=== PATIENT | female | born 1995 | race African-American/Black ===

== ENCOUNTER 2023-01-07 09:05 | Emergency (ER) | payer OTHER, SELFPAY ==
--- NOTE | ~2023-01-07 | XR_ITS ---
XR knee LT min 4V DATE: 01/07/2023 10:03 INDICATION: Pain and anterior swelling. No injury. TECHNIQUE: 4 views COMPARISON: None FINDINGS: There is prominent distention of the suprapatellar bursa consistent with joint effusion. No fracture or dislocation, periosteal reaction or bone destruction, radiopaque intra-articular loose body or chondrocalcinosis. Joint spaces are well preserved. IMPRESSION: Prominent knee joint effusion Reviewed, dictated and finalized at location A. CUTTER
[2023-01-07 09:07] VITALS: BP 144/84; PULSE 77; RESP 16; TEMP 36.4; O2SAT 100
--- NOTE | 2023-01-07 11:27 | ED.LOWEXIN ---
HPI - Extremity Injury (Lower) General Chief Complaint: Extremity Injury, Lower Stated Complaint: left knee pain Time Seen by Provider: 01/07/23 11:06 Source: patient Mode of arrival: ambulatory Limitations: no limitations History of Present Illness HPI Narrative: This is a 27-year-old female that presents to the emergency department for left knee swelling and pain. Worsening over the last couple of weeks. Reports she is on her feet a lot at work. She is able to ambulate, but with some discomfort. No known recent injuries. Denies fever, decreased ROM or redness. Related Data Allergies Allergy/AdvReac Type Severity Reaction Status Date / Time No Known Allergies Allergy Mild Unverified 01/07/23 11:16 Review of Systems Review of Systems: CONSTITUTIONAL: Denies fever SKIN: Denies rash MUSCULOSKELETAL: Reports joint pain, and myalgia. NEUROLOGIC: Denies numbness All systems reviewed & are unremarkable except as noted in HPI and below PMFSH Past Medical History Medical History (Updated 01/07/23 @ 13:26 by Opal Simental PA-C) No active medical problems Social History Social History (Updated 01/07/23 @ 13:26 by Opal Simental PA-C) Substance use: never Exam Narrative: GENERAL: Well-appearing, well-nourished, and in no acute distress. HEAD: Normocephalic, atraumatic. EYES: EOMI. CHEST: No respiratory distress. HEART: Regular rate EXTREMITIES: Normal range of motion. No erythema or warmth. Moderate edema about the left knee anteriorly. Normal DP pulse. Normal sensation SKIN: Warm, dry, no rash. NEURO: No focal deficits. Alert and oriented x3. PSYCH: Normal mood and affect Course Vital Signs Vital signs: Vital Signs Temperature 97.5 F L 01/07/23 09:07 Pulse Rate 77 01/07/23 09:07 Respiratory Rate 16 01/07/23 09:07 Blood Pressure 144/84 H 01/07/23 09:07 Pulse Oximetry 100 01/07/23 09:07 Oxygen Delivery Room Air 01/07/23 09:07 Temperature 97.5 F L 01/07/23 09:07 Pulse Rate 77 01/07/23 09:07 Respiratory Rate 16 01/07/23 09:07 Blood Pressure 144/84 H 01/07/23 09:07 Pulse Oximetry 100 01/07/23 09:07 Oxygen Delivery Room Air 01/07/23 09:07 Procedures Joint Aspiration/Injection Joint Asp./Inject. 1: Joint Aspiration Date: 01/07/23 Joint Aspiration Time: 13:24 Side of body: left Joint Aspirated: knee Skin Prep: Povidone-Iodine1% Local Anesthetic: lidocaine 1% Amount of anesthesia used (mL): 5 Needle Size Used: 18G Fluid Obtained: clear Total fluid obtained (mL): 20 Patient Tolerated Procedure: well and no complications Complications: none MDM - Extremity Injury (Lower) MDM Narrative Medical decision making narrative: Patient presents to the department for left knee pain and swelling ongoing over the last couple of weeks. No known recent injury. She is afebrile and nontoxic-appearing. No erythema or warmth of the knee. CBC is without leukocytosis. Inflammatory markers are not elevated. Left knee x-ray shows a prominent knee joint effusion. Patient's knee was aspirated for therapeutic and diagnostic evaluation which produced clear fluid. She was placed in an CHASE wrap. Will be given follow up with orthopedics. She was given warnings to return to the ER Differential Diagnosis Differential diagnosis: Likely acute internal derangement of knee and other (septic arthritis, knee sprain, gout, osteoarthritis) Lab Data Attestation: I reviewed the patient's lab results. 01/07/23 11:24 01/07/23 11:24 Labs: Lab Results 01/07/23 01/07/23 Range/Units 11:24 11:24 WBC 4.6 (4.5-10.0) K/mm3 RBC 4.53 (4.2-5.4) M/mm3 Hgb 13.4 (12.0-15.0) g/dL Hct 41.1 (37.0-47.0) % MCV 90.7 (80-100) fl MCH 29.6 (26-34) pg MCHC 32.6 (32-36) g/dl RDW 16.8 H (11.5-14.5) % Plt Count 312 (150-375) k/mm3 MPV 9.4 (7.4-10.4) fl Immature Gran % (Au
[2023-01-07 11:30] LABS: Basophils Percent Auto 0.7 % (0.2-1.2); Eosinophils Absolute Auto 0.1 K/mm3 (0-0.3); Eosinophils Percent Auto 1.8 % (0-4.4); Hematocrit 41.1 % (37.0-47.0); Hemoglobin 13.4 g/dL (12.0-15.0); Immature Granulocyte Absolute 0.01 K/mm3 (0.00-0.031); Immature Granulocyte Percent A 0.2 % (0-0.5); Lymphocytes Absolute Auto 2.12 K/mm3 (0.9-3.2); Lymphocytes Percent Auto 46.6 % (18.3-44.2); Mean Corpuscular HGB Conc 32.6 g/dl (32-36); Mean Corpuscular Hemoglobin 29.6 pg (26-34); Mean Corpuscular Volume 90.7 fl (80-100); Mean Platelet Volume 9.4 fl (7.4-10.4); Monocytes Absolute Auto 0.5 K/mm3 (0.1-0.6); Monocytes Percent Auto 10.5 % (2.6-8.5); Neutrophils Absolute Auto 1.8 K/mm3 (1.3-6.7); Neutrophils Percent Auto 40.2 % (45.5-73.1); Platelet Count Result 312 k/mm3 (150-375); Red Blood Count 4.53 M/mm3 (4.2-5.4); Red Cell Distribution Width 16.8 % (11.5-14.5); White Blood Count 4.6 K/mm3 (4.5-10.0)
[2023-01-07 11:43] LABS: Anion Gap 5 mmol/L (8-16); Blood Urea Nitrogen 11 mg/dL (7-17); CRP < 0.5 mg/dL (<1.0); Calcium 8.9 mg/dL (8.4-10.2); Carbon Dioxide 27 mmol/L (22-30); Chloride 103 mmol/L (98-107); Estimated CRCL calculation 134 ml/min; Estimated Glomerular Filt Rate > 60; Glucose 100 mg/dL (65-110); Potassium 4.1 mmol/L (3.4-5.0); Sodium 135 mmol/L (137-145)
[2023-01-07 12:00] LABS: Erythrocyte Sedimentation Rate 19 mm/hr (0-20)
[2023-01-07 14:50] LABS: Appearance Synovial Fluid Hazy (Clear); Color Synovial Fluid Yellow (Colorless); Lymphocytes Synovial Fluid 43 %; Macrophages Synovial Fluid 51 %; Neutrophils Synovial Fluid 6 % (0-25); Nucleated Cell Synovial Fluid 1337 /uL (0-200); RBC Synovial Fluid 2752 /uL (0-0); Source Synovial Fluid Synovial fluid
[2023-01-07 14:56] LABS: Crystals Synovial Fluid None Seen (None Seen)
[2023-01-11 19:55] LABS: Glucose Synovial Fluid 92 mg/dL
[2023-01-12 14:10] LABS: Total Protein Synovial Fluid 3.7
== END 2023-01-07 13:31 | disposition home or self-care (01) ==
PROVIDERS: Emergency Provider Physician Assistant; PCP Internal Medicine Gastroenterology
DX: M25.462 Effusion, left knee (principal)
CPT/HCPCS: 20605; 20610; 36415; 73564; 80048; 82945; 84157; 85025; 85652; 86140; 87070; 87075; 87205; 89051; 89060; 99283

== ENCOUNTER 2023-03-05 10:02 | Outpatient (CLI) | payer OTHER, SELFPAY ==
--- NOTE | ~2023-03-05 | MR_ITS ---
MRI of the left knee Clinical history: Medial meniscal tear Technique: Coronal proton density and proton density-weighted images, sagittal proton-density and T2 fat-sat images, and axial proton-density fat-saturated images were acquired. Findings: Anterior and posterior cruciate ligaments are intact. Medial collateral ligament and the la teral collateral ligament complex are intact. Popliteus tendon is intact. Medial and lateral menisci are intact, without evidence of tear. Articular cartilage is well preserved throughout the knee. Bone marrow signals are unremarkable. Extensor mechanism is intact. No joint effusion or Garrido's cyst. Impression: No significant abnormality seen. Reviewed, dictated and finalized at location . Impression: No significant abnormality seen.
== END 2023-03-05 10:03 | disposition home or self-care (01) ==
PROVIDERS: PCP Internal Medicine Gastroenterology; Visit Provider Orthopaedic Surgery
DX: S83.242A Other tear of medial meniscus, current injury, left knee, initial encounter (principal); T14.90XA Injury, unspecified, initial encounter
CPT/HCPCS: 73721

== ENCOUNTER 2025-06-28 19:55 | Emergency (ER) | payer OTHER, SELFPAY ==
[2025-06-28] VITALS (7 sets, daily range): BP systolic 123–146; BP diastolic 73–104; PULSE 77–96; RESP 17–20; TEMP 36.2; O2SAT 99–100
--- NOTE | ~2025-06-28 | XR_ITS ---
Portable chest x-ray Comparison: None Clinical History: Chest pain Findings: Lungs are clear, without focal consolidation or pleural effusion. Cardiomediastinal silho uette is unremarkable. Bones and soft tissues are unremarkable. Impression: Normal chest. Reviewed, dictated and finalized at location M. Impression: Normal chest.
--- NOTE | 2025-06-28 19:56 | ECG_ITS ---
Test Date: 2025-06-28 20:02:52 Measurements Intervals [place] Rate: 78 P: 50 [place]: 164 QRS: 31 QRSD: 82 T: 45 QT: 343 QTc: 391 Interpretive Statements SINUS RHYTHM BASELINE ARTIFACT- I, II, AVR, AVL, AVF NORMAL ECG No previous ECG available for comparison Electronically Signed On 06-28-2025 20:23:47 CDT by Deon Meehan D.O.
--- OUTSIDE RECORDS SUMMARY | 2025-06-28 19:57 | XMS_ITS | Clinical Summary ---
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 Gender Identity Not on file Sexual Orientation Not on file Plan of Treatment Health Maintenance Due Date Last Done Comments Hepatitis C Virus (HCV) Screening 1995 TdaP Immunization 1995 Human Papillomavirus (HPV) Immunization (1 - 3-dose series) 2010 SARS-COV-2 Immunization ( season) 2024 Influenza Immunization (#1) 2025 Respiratory Syncytial Virus (RSV) Immunization (Adult) (1 - 1-dose 75+ series) 2070 Hepatitis B Immunization Completed 997, 01/28/1996, 1995 DTaP/Tdap/Td Immunization Discontinued 1999, 08/27/1998, 07/10/1997, Additional history exists Pneumococcal Immunization Combined Aged Out 08/26/2001 No longer eligible based on patient's age to complete this topic Meningococcal Immunization (ACWY) Aged Out No longer eligible based on patient's age to complete this topic Rotavirus Immunization Aged Out No lo nger eligible based on patient's age to complete this topic
--- OUTSIDE RECORDS SUMMARY | 2025-06-28 22:36 | XMS_ITS | Clinical Summary ---
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
[2025-06-28 22:55] LABS: Hematocrit 40.1 % (37.0-47.0); Hemoglobin 12.9 g/dL (12.0-15.0); Immature Granulocyte Percent A 0.1 % (0-0.5); Lymphocytes Absolute Auto 3.29 K/mm3 (0.9-3.2); Mean Corpuscular HGB Conc 32.2 g/dl (32-36); Mean Corpuscular Hemoglobin 28.5 pg (26-34); Mean Corpuscular Volume 88.7 fl (80-100); Nucleated Red Blood Cells Absolute Auto 0.000 K/mm3 (0.0-0.012); Nucleated Red Blood Cells Perc 0.0 % (0.0-0.2); Platelet Count Result 332 k/mm3 (150-375); Red Blood Count 4.52 M/mm3 (4.2-5.4); White Blood Count 7.6 K/mm3 (4.5-10.0)
[2025-06-28 23:07] LABS: Alanine Aminotransferase 19 U/L (6-35); Albumin Level 4.0 g/dL (3.5-5.1); Alkaline Phosphatase 79 U/L (38-126); Anion Gap 5 mmol/L (4-12); Aspartate Amino Transferase 31 U/L (14-36); Bilirubin,Total 0.4 mg/dL (0.2-1.3); Blood Urea Nitrogen 9 mg/dL (7-17); Calcium 8.9 mg/dL (8.4-10.2); Carbon Dioxide 26 mmol/L (22-30); Chloride 104 mmol/L (98-107); Estimated CRCL calculation 117 ml/min; Estimated Glomerular Filt Rate > 60; Glucose 99 mg/dL (65-110); Lipase 68 U/L (23-300); Potassium 4.2 mmol/L (3.4-5.0); Sodium 135 mmol/L (137-145); Total Protein 7.6 g/dL (6.3-8.2)
[2025-06-28 23:18] LABS: Troponin I < 0.012 ng/mL (0.000-0.034)
--- NOTE | 2025-06-28 23:28 | ED.CHESTPAIN ---
HPI - Chest Pain General Chief Complaint: Chest Pain Stated Complaint: Right side chest pain x 24 hrs Time Seen by Provider: 06/28/25 22:07 Source: patient and family (Mother) Mode of arrival: ambulatory Limitations: no limitations History of Present Illness HPI narrative: 29-year-old female presents with right-sided chest pain for the past 1-2 days. Patient notes that was worse when she woke up and is associated with nausea but no vomiting. The pain itself does not radiate but does seem like it is worse when she is moving her right arm. She has a bit of a headache. She took Aleve. At rest her pain is 1/10 in severity she is moving her arm she will experience 6/10 pain. She denies any edema although she states that she has some bilateral knee problems. Confirm she has a primary care physician. 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 Denies any underlying respiratory or cardiac issues. Patient states that she has noted this happens before and she will experience a tightness when she feels stressed or anxious. Denies any shortness of breath, fevers, chills. No cough. Cardiac risk factors HTN: 0 HLD: 0 DM: No (prediabetic, not on meds, diet/exercise) Obese: No per BI 29.2 today Smoker: Yes, vapes nicotine/tobacco Personal history MO/TIA/CVA: No Fam Hx MO in first degree relative <65yo: No Related Data Allergies Allergy/AdvReac Type Severity Reaction Status Date / Time No Known Allergies Allergy Mild Unverified 06/28/25 19:56 PMFSH Past Medical History Medical History Pre-diabetes not on medication, currently diet/exercise Social History Social History (Updated 06/29/25 @ 17:48 by Marily Christianson MD) Tobacco type: e-cigarettes/vaping Additional smoking assessment comments: Nicotine/tobacco Substance use: never Occupation/Education: occupation Additional occupation/education comments: desk job/typing Exam Narrative: GENERAL: Well-appearing, well-nourished, and in no acute distress. HEAD: Normocephalic, atraumatic. EYES: Non injected, non icteric ENT: Nares clear, no rhinorrhea or epistaxis. Gross auditory acuity intact. NECK: Supple. No meningismus. CHEST: Speaking in full sentences. No respiratory distress. Nonlabored. HEART: Regular rate and rhythm. ABDOMEN: Soft, nondistended. No rigidity or guarding. Not peritoneal EXTREMITIES: Normal range of motion. No bilateral lower extremity edema. SKIN: Warm, dry, no rash. In particular no lesions/vesicles/ecchymosis/laceration across right chest. NEURO: No focal deficits. Alert and oriented. Answering questions. Following commands. Normal speech without aphasia or dysarthria. PSYCH: Normal mood and affect. Course Vital Signs Vital signs: Vital Signs Temperature 97.2 F L 06/28/25 19:57 Pulse Rate 96 06/28/25 19:57 Respiratory Rate 17 06/28/25 19:57 Blood Pressure 146/104 H 06/28/25 19:57 Pulse Oximetry 100 06/28/25 19:57 Oxygen Delivery Room Air 06/28/25 19:57 Temperature 97.2 F L 06/28/25 19:57 Pulse Rate 88 06/29/25 02:01 Respiratory Rate 16 06/29/25 02:01 Blood Pressure 124/73 06/29/25 02:01 Pulse Oximetry 99 06/29/25 02:01 Oxygen Delivery Room Air 06/28/25 22:46 MDM - Chest Pain MDM Narrative Medical decision making narrative: Patient presents with right-sided of chest pain of 1-2 days duration. It is not radiating although she does know that it is worse as she moves her right arm. No shortness of breath. In the emergency department she is afebrile with vital signs notable for hypertension. She is not tachycardic or hypoxic. HEART SCORE History 2 highly suspicious 1 moderately suspicious 0 slightly suspicious History score [address] depression/elevation not due to LBBB, LVH, or digoxin [address] depression but LBBB, LVH, nonspecific repolarization changes 0 normal ECG score 0 Age 2 >/= 65 1 45-64 0 <45 Age score 0 Risk factors (HTN, hypercholesterolemia, DM, obesity with BMI >30, current smoker or cessation </=3mo), positive fam hx with parent or sibling with CVD before age 65, atherosclerotic disease (prior MO, PCI/CABG, CVA/TIA, or peripheral arterial disease) 2 >/= 3 risk factors or history of atherosclerotic dz 1 - 1-2 risk factors 0 no known risk factors Risk factor score 1 Initial Troponin 2 >3 times normal limit 1 1-3 times normal limit 0 less than or equal to normal limit Troponin score 0 Total HEART Score 1. Repeat troponin normal. Will give ketorolac. Patient otherwise stable for discharge. Symptoms sound musculoskeletal. Advised follow-up with PCP. Given prescriptions for apej-mvp-[id number] analgesic medication. Differential Diagnosis Differential diagnosis: Likely pneumothorax, stable angina, unstable angina pectoris, atypical chest pain, st elevation myocardial infarction, costochondritis, chest pain, biliary colic and other (considered shingles, torn pectoral muscle) Lab Data Attestation: I reviewed the patient's lab results. Lab results narrative: No marked abnormalities on CBC, only irregular values the differential 06/28/25 22:44 06/28/25 22:44 Labs: Lab Results 06/28/25 06/29/25 Range/Units 22:44 01:16 WBC 7.6 (4.5-10.0) K/mm3 RBC 4.52 (4.2-5.4) M/mm3 Hgb 12.9 (12.0-15.0) g/dL Hct 40.1 (37.0-47.0) % MCV 88.7 (80-100) fl MCH 28.5 (26-34) pg MCHC 32.2 (32-36) g/dl RDW 13.9 (11.5-14.5) % Plt Count 332 (150-375) k/mm3 MPV 9.1 (7.4-10.4) fl Immature Gran % (Auto) 0.1 (0-0.5) % Neut % (Auto) 44.0 L (45.5-73.1) % Lymph % (Auto) 43.3 (18.3-44.2) % [place] % (Auto) 9.6 H (2.6-8.5) % Eos % (Auto) 2.2 (0-4.4) % Baso % (Auto) 0.8 (0.2-1.2) % Lymph # (Auto) 3.29 H (0.9-3.2) K/mm3 [place] # (Auto) 0.7 H (0.1-0.6) K/mm3 Eos # (Auto) 0.2 (0-0.3) K/mm3 Baso # (Auto) 0.1 (0.0-0.1) K/mm3 Abs Immat Gran (auto) 0.01 (0.00-0.031) K/mm3 Absolute Neuts (auto) 3.3 (1.3-6.7) K/mm3 Absolute Nucleated RBC 0.000 (0.0-0.012) K/mm3 Nucleated RBC % 0.0 (0.0-0.2) % Sodium 135 L (137-145) mmol/L Potassium 4.2 (3.4-5.0) mmol/L Chloride 104 (98-107) mmol/L Carbon Dioxide 26 (22-30) mmol/L Anion Gap 5 (4-12) mmol/L BUN 9 (7-17) mg/dL Creatinine 0.78 (0.7-1.0) mg/dL Estim Creat Clear Calc 117 ml/min Estimated GFR > 60 (59 - ) Glucose 99 (65-110) mg/dL Calcium 8.9 (8.4-10.2) mg/dL Total Bilirubin 0.4 (0.2-1.3) mg/dL AST 31 (14-36) U/L ALT 19 (6-35) U/L Alkaline Phosphatase 79 (38-126) U/L Troponin I < 0.012 < 0.012 (0.000-0.034) ng/mL Total Protein 7.6 (6.3-8.2) g/dL Albumin 4.0 (3.5-5.1) g/dL Lipase 68 (23-300) U/L Imaging Data Attestation: I personally reviewed and interpreted this imaging study as follows: My impression: No acute intrathoracic process on my independent interpretation of chest x-ray ECG Data EKG #1: Attestation: I personally reviewed and interpreted this ECG as follows: ECG completion date: 06/28/25 ECG completion time: 20:02 Interpretation: Normal sinus rhythm at a rate of 78 beats per minute. HI interval 164. QRS 82. QT/QTC 343/391. Good R-wave progression across the precordial leads. No T-wave inversion. Normal ECG. EKG #2: Attestation: I personally reviewed and interpreted this ECG as follows: ECG completion date: 06/29/25 ECG completion time: 01:13 Interpretation: Normal sinus rhythm at a rate of 67 beats per minute. HI interval 184. QRS 84. QT/QTC 384/396. Good R-wave progression across the precordial leads. T-wave flattening in 3 but otherwise upright in normal in contiguous inferior leads. No T-wave inversions. Normal axis. Normal ECG. Discharge Plan Discharge Clinical Impression: Atypical chest pain Patient Disposition: Home Condition: Stable Instructions: Antibiotic Form, Chest Pain (DC), Chest Wall Pain (ED) Additional Instructions: Unclear etiology of your symptoms although they sound more musculoskeletal than cardiac in you had a reassuring workup which included chest x-ray, 2 EKGs, and 2 cardiac enzymes (troponin) that were normal. Follow-up with your primary care physician. Return to the emergency department any new or worsening symptoms. Acetaminophen/Tylenol (maximum 4000 mg per day) is safe to take with NSAIDs (ibuprofen/Motrin) for pain relief. Patient Language: Irish Prescriptions: New ibuprofen 600 mg tablet 600 mg PO TID PRN (Reason: pain) Qty: 30 0RF acetaminophen 500 mg capsule 1,000 mg PO Q6H PRN (Reason: pain) Qty: 30 0RF Follow-up/Referrals: Ruben,Suzanna Monk MD [Primary Care Provider] - Stand Alone Forms: Work/School Release IP Time of Disposition: 02:01
[2025-06-29] VITALS (11 sets, daily range): BP systolic 120–124; BP diastolic 73–80; PULSE 65–93; RESP 16; O2SAT 98–100
[2025-06-29] MEDS: ACETAMINOPHEN 500 MG TABLET 1000 MG PO (00:41)
--- NOTE | 2025-06-29 01:03 | ECG_ITS ---
Test Date: 2025-06-29 01:13:39 Measurements Intervals [place] Rate: 67 P: 51 [place]: 184 QRS: 34 QRSD: 84 T: 31 QT: 381 QTc: 402 Interpretive Statements SINUS RHYTHM NORMAL ECG Compared to ECG 06/28/2025 20:02:52 No significant changes Electronically Signed On 06-29-2025 06:25:44 CDT by Deon Meehan D.O.
[2025-06-29 01:57] LABS: Troponin I < 0.012 ng/mL (0.000-0.034)
[2025-06-29] MEDS: KETOROLAC 15 MG/ML VIAL (*BKC) IV PUSH (02:10)
== END 2025-06-29 02:13 | disposition home or self-care (01) ==
PROVIDERS: Emergency Provider Student in an Organized Health Care Education/Training Program; PCP Internal Medicine Gastroenterology
DX: R07.89 Other chest pain (principal); R73.03 Prediabetes
CPT/HCPCS: 36415; 71045; 80053; 83690; 84484; 85025; 93005; 96374; 99284; A9270; J1885

== ENCOUNTER 2025-07-03 12:51 | Emergency (ER) | payer OTHER, SELFPAY ==
--- NOTE | ~2025-07-03 | XR_ITS ---
EXAMINATION: XR chest 2V DATE: 07/03/2025 14:03 INDICATION: Chest pain and chest tightness TECHNIQUE: PA and lateral views of the chest were obtained. COMPARISON: Chest radiograph dated 06/28/2025 FINDINGS: The lungs remain clear with no focal airspace opacities, pulmonary edema, pleural effusion or pneumot horax. The cardiomediastinal silhouette is normal. Visualized bones and soft tissues are unremarkable . IMPRESSION: 1. No acute cardiopulmonary disease. Reviewed, dictated and finalized at location A.
--- OUTSIDE RECORDS SUMMARY | 2025-07-03 12:53 | XMS_ITS | Clinical Summary ---
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
--- NOTE | 2025-07-03 12:54 | ECG_ITS ---
Test Date: 2025-07-03 12:58:18 Measurements Intervals [place] Rate: 95 P: 74 [place]: 159 QRS: 34 QRSD: 85 T: 11 QT: 321 QTc: 405 Interpretive Statements SINUS RHYTHM NONSPECIFIC T-WAVE ABNORMALITY- INFERIOR LEADS BASELINE ARTIFACT- I, III, AVR, AVL, AVF BORDERLINE ECG Compared to ECG 06/29/2025 01:13:39 T-wave abnormality now present Electronically Signed On 07-03-2025 13:20:14 CDT by Deon Meehan D.O.
[2025-07-03 12:57] VITALS: BP 140/83; PULSE 95; RESP 16; TEMP 36.6; O2SAT 97
[2025-07-03 13:10] LABS: Hematocrit 40.4 % (37.0-47.0); Hemoglobin 13.4 g/dL (12.0-15.0); Immature Granulocyte Percent A 0.3 % (0-0.5); Lymphocytes Absolute Auto 2.75 K/mm3 (0.9-3.2); Mean Corpuscular HGB Conc 33.2 g/dl (32-36); Mean Corpuscular Hemoglobin 29.3 pg (26-34); Mean Corpuscular Volume 88.2 fl (80-100); Nucleated Red Blood Cells Absolute Auto 0.000 K/mm3 (0.0-0.012); Nucleated Red Blood Cells Perc 0.0 % (0.0-0.2); Platelet Count Result 361 k/mm3 (150-375); Red Blood Count 4.58 M/mm3 (4.2-5.4); White Blood Count 7.3 K/mm3 (4.5-10.0)
[2025-07-03 13:22] LABS: Alanine Aminotransferase 24 U/L (6-35); Albumin Level 4.2 g/dL (3.5-5.1); Alkaline Phosphatase 76 U/L (38-126); Anion Gap 9 mmol/L (4-12); Aspartate Amino Transferase 32 U/L (14-36); Bilirubin,Total 0.5 mg/dL (0.2-1.3); Blood Urea Nitrogen 7 mg/dL (7-17); Calcium 9.4 mg/dL (8.4-10.2); Carbon Dioxide 24 mmol/L (22-30); Chloride 102 mmol/L (98-107); Estimated CRCL calculation 119 ml/min; Estimated Glomerular Filt Rate > 60; Glucose 110 mg/dL (65-110); Lipase 70 U/L (23-300); Potassium 4.0 mmol/L (3.4-5.0); Sodium 135 mmol/L (137-145); Total Protein 8.0 g/dL (6.3-8.2)
[2025-07-03 13:26] LABS: INR 1.0; Prothrombin Time 13.3 Seconds (11.1-14.7)
[2025-07-03 13:27] LABS: Partial Thromboplastin Time 28.7 Seconds (22.3-36.8)
[2025-07-03 13:34] LABS: Troponin I < 0.012 ng/mL (0.000-0.034)
--- OUTSIDE RECORDS SUMMARY | 2025-07-03 13:44 | XMS_ITS | Clinical Summary ---
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
--- NOTE | 2025-07-03 13:51 | PC.NURSE ---
Patient to radiology
--- NOTE | 2025-07-03 13:54 | ED_ITS ---
HPI - General Adult General Chief complaint: Anxiety Stated complaint: anxiety with chest tightness Time Seen by Provider: 07/03/25 13:35 History of Present Illness HPI narrative: 29-year-old female presented to the emergency department for evaluation for constant midsternal chest pain since Sunday. Patient was evaluated in the emergency department Sunday and had negative cardiac workup. Patient reports that the symptoms have persisted. Patient has also stated she has had 2 panic attacks this week. At time of evaluation patient is in no distress. Related Data Allergies Allergy/AdvReac Type Severity Reaction Status Date / Time No Known Allergies Allergy Mild Unverified 07/03/25 13:03 Review of Systems 2 Review of Systems: All systems reviewed & are unremarkable except as noted in HPI and below PMFSH Past Medical History Medical History Pre-diabetes not on medication, currently diet/exercise Social History Social History (Updated 06/29/25 @ 17:48 by Marily Christianson MD) Tobacco type: e-cigarettes/vaping Additional smoking assessment comments: Nicotine/tobacco Substance use: never Occupation/Education: occupation Additional occupation/education comments: desk job/typing Exam 2 Narrative: APPEARANCE: Well appearing, no pain, no distress, well-nourished. HEAD: normocephalic, atraumatic. EYES: PERRLA/EOMI, conjunctivae clear. NOSE: Normal no drainage EARS:TMS clear with good light reflex. THROAT: Pharynx clear, no exudate. NECK: Supple. No adenopathy, no masses. RESPIRATORY: Airway patent, respirations nonlabored. Clear to auscultation bilaterally, no rales, rhonchi, wheezing. CARDIOVASCULAR: Regular rate and rhythm without murmurs rubs or gallops. ABDOMINAL: Soft, nontender, nondistended, normal bowel sounds MUSCULOSKELETAL: Moves all extremities. Strength/ROM intact, No edema, No calf tenderness. NEURO: Alert. Cranial nerves II through XII intact. Good gait. Good coordination SKIN: Warm, dry. Normal Color Course Vital Signs Vital signs: Vital Signs Temperature 98 F 07/03/25 12:57 Pulse Rate 95 07/03/25 12:57 Respiratory Rate 16 07/03/25 12:57 Blood Pressure 140/83 07/03/25 12:57 Pulse Oximetry 97 07/03/25 12:57 Oxygen Delivery Room Air 07/03/25 12:57 Temperature 98 F 07/03/25 12:57 Pulse Rate 78 07/03/25 16:43 Respiratory Rate 16 07/03/25 16:43 Blood Pressure 127/85 07/03/25 16:43 Pulse Oximetry 100 07/03/25 16:43 Oxygen Delivery Room Air 07/03/25 12:57 Medical Decision Making MDM Narrative Medical decision making narrative: 29-year-old female per the emergency department for evaluation for multiple panic attacks. Patient was evaluated department few days ago and had a negative cardiac workup. Patient is currently afebrile with no leukocytosis hemoglobin 13.4. Patient's D-dimer was not elevated 9 patient's INR is 1.0. Patient has no acute abnormalities on her CMP and patient had negative serial troponins, chest x-ray shows no acute cardiopulmonary abnormality. EKG showed normal sinus arrhythmia. Patient was updated results of her workup. Patient was comfortable the plan for discharge and close follow-up with her primary care physician for additional outpatient cardiac testing including a Holter monitor. Patient will be provided some medications for anxiety control Differential Diagnosis Differential Diagnosis: Pneumonia, pneumothorax, pulmonary embolism, DVT Vital Signs Vital Signs: Vital Signs Temperature 98 F 07/03/25 12:57 Pulse Rate 95 07/03/25 12:57 Respiratory Rate 16 07/03/25 12:57 Blood Pressure 140/83 07/03/25 12:57 Pulse Oximetry 97 07/03/25 12:57 Oxygen Delivery Room Air 07/03/25 12:57 Temperature 98 F 07/03/25 12:57 Pulse Rate 78 07/03/25 16:43 Respiratory Rate 16 07/03/25 16:43 Blood Pressure 127/85 07/03/25 16:43 Pulse Oximetry 100 07/03/25 16:43 Oxygen Delivery Room Air 07/03/25 12:57 Lab Data Lab results reviewed: Yes I reviewed the patient's lab results. 07/03/25 13:03 07/03/25 13:03 Labs: Lab Results 07/03/25 07/03/25 Range/Units 13:03 15:45 WBC 7.3 (4.5-10.0) K/mm3 RBC 4.58 (4.2-5.4) M/mm3 Hgb 13.4 (12.0-15.0) g/dL Hct 40.4 (37.0-47.0) % MCV 88.2 (80-100) fl MCH 29.3 (26-34) pg MCHC 33.2 (32-36) g/dl RDW 14.3 (11.5-14.5) % Plt Count 361 (150-375) k/mm3 MPV 9.2 (7.4-10.4) fl Immature Gran % (Auto) 0.3 (0-0.5) % Neut % (Auto) 51.6 (45.5-73.1) % Lymph % (Auto) 37.6 (18.3-44.2) % [place] % (Auto) 8.6 H (2.6-8.5) % Eos % (Auto) 1.2 (0-4.4) % Baso % (Auto) 0.7 (0.2-1.2) % Lymph # (Auto) 2.75 (0.9-3.2) K/mm3 [place] # (Auto) 0.6 (0.1-0.6) K/mm3 Eos # (Auto) 0.1 (0-0.3) K/mm3 Baso # (Auto) 0.1 (0.0-0.1) K/mm3 Abs Immat Gran (auto) 0.02 (0.00-0.031) K/mm3 Absolute Neuts (auto) 3.8 (1.3-6.7) K/mm3 Absolute Nucleated RBC 0.000 (0.0-0.012) K/mm3 Nucleated RBC % 0.0 (0.0-0.2) % PT 13.3 (11.1-14.7) Seconds INR 1.0 APTT 28.7 (22.3-36.8) Seconds D-Dimer 0.30 (<0.48) ug/mL Sodium 135 L (137-145) mmol/L Potassium 4.0 (3.4-5.0) mmol/L Chloride 102 (98-107) mmol/L Carbon Dioxide 24 (22-30) mmol/L Anion Gap 9 (4-12) mmol/L BUN 7 (7-17) mg/dL Creatinine 0.77 (0.7-1.0) mg/dL Estim Creat Clear Calc 119 ml/min Estimated GFR > 60 (59 - ) Glucose 110 (65-110) mg/dL Calcium 9.4 (8.4-10.2) mg/dL Total Bilirubin 0.5 (0.2-1.3) mg/dL AST 32 (14-36) U/L ALT 24 (6-35) U/L Alkaline Phosphatase 76 (38-126) U/L Troponin I < 0.012 < 0.012 (0.000-0.034) ng/mL Total Protein 8.0 (6.3-8.2) g/dL Albumin 4.2 (3.5-5.1) g/dL Lipase 70 (23-300) U/L Imaging Data Radiologist's impression: Impressions Chest X-Ray 07/03/25 14:07 IMPRESSION: 1. No acute cardiopulmonary disease. ECG Data EKG #1: EKG Interpretation: normal rate, sinus rhythm, no ectopy, non-specific ST changes, normal QT, NL axis and no acute changes Discharge Plan Discharge Clinical Impression: Acute anxiety, Heart palpitations Patient Disposition: Home Condition: Stable Instructions: Antibiotic Form, Heart Palpitations (DC), Anxiety (ED) Additional Instructions: Have close follow-up with your primary care physician for additional outpatient cardiac testing including a Holter monitor. Medications as needed for anxiety control. If you have any worsening symptoms and please call or return to the emergency department Patient Language: Upper Sorbian Prescriptions: New lorazepam [Ativan] 1 mg tablet 1 mg PO BID PRN (Reason: anxiety) 5 Days Qty: 10 0RF No Action ibuprofen 600 mg tablet 600 mg PO TID PRN (Reason: pain) Qty: 30 0RF acetaminophen 500 mg capsule 1,000 mg PO Q6H PRN (Reason: pain) Qty: 30 0RF Follow-up/Referrals: PHYSICIAN,ANIME ARTIST [Primary Care Provider] - Quality HEART score for chest pain patients History: slightly suspicious ECG: normal Age: < or = to 45 years Risk factors: 1 or 2 risk factors Troponin: < or = to 1x normal limit Heart score: 1
[2025-07-03] MEDS: ASPIRIN 81 MG CHEWABLE TABLET 324 MG PO (14:12)
--- NOTE | 2025-07-03 14:12 | PC.NURSE ---
returned from radiology
[2025-07-03 14:15] VITALS: BP 123/86; PULSE 83; RESP 16; O2SAT 98
--- NOTE | 2025-07-03 15:39 | ECG_ITS ---
Test Date: 2025-07-03 16:05:02 Measurements Intervals [place] Rate: 66 P: 43 NM: 170 QRS: 44 QRSD: 83 T: 31 QT: 371 QTc: 389 Interpretive Statements SINUS RHYTHM WITH SINUS ARRHYTHMIA NORMAL ECG Compared to ECG 07/03/2025 12:58:18 No significant changes Electronically Signed On 07-03-2025 16:16:18 CDT by Deon Meehan D.O.
[2025-07-03 16:13] LABS: Troponin I < 0.012 ng/mL (0.000-0.034)
[2025-07-03 16:43] VITALS: BP 127/85; PULSE 78; RESP 16; O2SAT 100
== END 2025-07-03 16:44 | disposition home or self-care (01) ==
PROVIDERS: Emergency Provider Emergency Medicine
DX: F41.9 Anxiety disorder, unspecified (principal); R00.2 Palpitations; R73.03 Prediabetes
CPT/HCPCS: 36415; 71046; 80053; 83690; 84484; 85025; 85380; 85610; 85730; 93005; 99284; A9270